=== PATIENT | female | born 1965 | race Caucasian/White ===

== ENCOUNTER 2017-01-05 11:53 | Emergency (ER) | payer SELFPAY ==
[2017-01-05] MEDS ORDERED: DUONEB INH ONE ×2 (14:25)
[2017-01-05] MEDS ORDERED: METHYLPRED SOD SUCC 125 MG/2 ML VIAL ONE (14:29)
== END 2017-01-05 16:05 | disposition home or self-care (01) ==
LOC: ER 11:53
DX: J45.40 Moderate persistent asthma, uncomplicated (principal); Z79.899 Other long term (current) drug therapy
CPT/HCPCS: 36415; 71020; 80053; 82553; 84484; 85025; 85379; 93005; 94640; 96372